=== PATIENT | male | born 1985 | race Two or more races ===

== ENCOUNTER 2017-10-29 12:43 | Day surgery (SDC) | payer OTHER ==
[2017-10-29 13:17] VITALS: BMI 45.3
[2017-10-29] MEDS ORDERED: LIDOCAINE HCL/PF 2% SDV 5ML VIAL ONE (15:17)
[2017-10-29] MEDS ORDERED: PROPOFOL 20 ML ONE ×2 (15:17)
[2017-10-29] MEDS ORDERED: SUCCINYLCHOLINE CHLORIDE 200 MG/10 ML VIAL ONE (15:17)
[2017-10-29] MEDS ORDERED: ROCURONIUM BROMIDE 50 MG/5 ML VIAL ONE (15:17)
[2017-10-29] MEDS ORDERED: fentaNYL CITRATE 250 MCG/5 ML VIAL ONE (15:17)
[2017-10-29] MEDS ORDERED: MIDAZOLAM HCL 2 MG/2 ML SINGLE DOSE VIAL ONE (15:18)
[2017-10-29] MEDS ORDERED: ceFAZolin SODIUM 1 GM VIAL IVPB ONE (15:50)
[2017-10-29] MEDS ORDERED: ceFAZolin SODIUM 1 GM VIAL ONE (15:50)
[2017-10-29] MEDS ORDERED: DEXAMETHASONE SOD PHOSPHATE 4 MG/1 ML VIAL ONE (15:50)
[2017-10-29] MEDS ORDERED: NEOSTIGMINE METHYLSULFATE 0.5 MG/ML - 10 ML MDV ONE (17:00)
[2017-10-29] MEDS ORDERED: BUPIVACAINE HCL/PF 0.5% (5MG/ML) 10 ML VIAL IJ ONE (17:06)
--- NOTE | 2017-10-29 17:27 | OP ---
Operative Note - Note: Operative Date: 10/29/17 Pre-Operative Diagnosis: Morbid obesity s/p lap band rule out obstruction/leak Operation: EGD/upper endoscopy Post-Operative Diagnosis: Other (No leak/obstruction) Surgeon: Ever Portillo Anesthesia: General Specimens Removed: None Estimated Blood Loss (mls): 0 Operative Report Dictated: Yes
[2017-10-29] MEDS ORDERED: ENOXAPARIN NA (PORCINE) 40 MG/0.4 ML DISP.SYRIN SQ ONE (17:28)
[2017-10-29] MEDS: HYDROmorphone HCL CARPU-JECT 1 MG/1 ML DISP.SYRIN IVPUSH PRN ×2 (17:33→17:40)
[2017-10-29] MEDS ORDERED: HYDROmorphone HCL CARPU-JECT 1 MG/1 ML DISP.SYRIN IVPB PRN (17:33)
[2017-10-29] MEDS ORDERED: ONDANSETRON 4 MG/2 ML VIAL IVPB PRN (17:34)
[2017-10-29] MEDS ORDERED: HYDROmorphone HCL CARPU-JECT 2 MG/1 ML DISP.SYRIN IVPB PRN (17:35)
[2017-10-29] MEDS ORDERED: ONDANSETRON 4 MG/2 ML VIAL IVPUSH PRN (17:38)
[2017-10-29] MEDS: ACETAMINOPHEN 1000 MG/100 ML VIAL (NON FORMULARY) IVPB PRN ×2 (17:45→23:55)
[2017-10-29] MEDS ORDERED: LACTATED RINGERS SOLUTION 1,000 ML IV SCH (17:45)
--- NOTE | 2017-10-29 17:48 | OP ---
Operative Note - Note: Operative Date: 10/29/17 Pre-Operative Diagnosis: Morbid Obesity. Sleep Apnea Operation: Laparoscopic Gastric Band. Diagnostic Laparoscopy Findings: 30 cc proximal gastric pouch created Very enlarged left lobe of liver Implants: gastric band plus sub-Q port Post-Operative Diagnosis: Other Surgeon: Joaquin Dasilva Maintenance Groundman: Ever Portillo Anesthesia: General Estimated Blood Loss (mls): 30 Operative Report Dictated: Yes
[2017-10-29 18:01] LABS: HEMATOCRIT 44.4 % (35.4-49); HEMOGLOBIN 14.1 GM/dL (11.7-16.9); MCH 25.8 pg (25.7-33.7); MCHC 31.8 g/dl (32.0-35.9); MEAN CELL VOLUME 81.2 fl (80-96); MEAN PLT VOLUME 8.6 fl (7.5-11.1); PLATELET COUNT 258 K/MM3 (134-434); RBC 5.47 M/mm3 (4.00-5.60); RDW 13.8 % (11.9-15.9); WHITE BLOOD COUNT 14.5 K/mm3 (4.0-10.0)
[2017-10-29] MEDS: SODIUM CHLORIDE 1,000 ML IV SCH ×2 (18:10→20:45)
[2017-10-29 18:29] LABS: ANION GAP 5 (8-16); BLOOD UREA NITROGEN 15 mg/dL (7-18); CALCIUM 8.6 mg/dL (8.5-10.1); CHLORIDE 105 mmol/L (98-107); CO2 29 mmol/L (21-32); CREATININE 1.3 mg/dL (0.7-1.3); GLUCOSE,RANDOM 139 mg/dL (74-106); POTASSIUM 4.3 mmol/L (3.5-5.1); SODIUM 139 mmol/L (136-145)
--- NOTE | 2017-10-29 19:52 | OP ---
DATE OF OPERATION: 10/29/2017 SURGEON: Jerry Portillo M.D. PREOPERATIVE DIAGNOSIS: Morbid obesity status post laparoscopic gastric band placement, rule out obstruction/leak. POSTOPERATIVE DIAGNOSIS: No leak/obstruction. SPECIMENS: None. ESTIMATED BLOOD LOSS: 0 mL. PROCEDURE: Upper endoscopy/EGD. REASON FOR THE PROCEDURE: This is a 32-year-old male who was undergoing a laparoscopic gastric band placement by Dr. Joaquin Dasilva. At the end of the case, after the band was placed, there was request for upper endoscopy to rule out leak or obstruction. DESCRIPTION OF PROCEDURE: The endoscope was placed into the patient's mouth. The entirety of the esophagus, GE junction, and stomach was inspected down to the level of the pylorus. No leak or obstruction was noted. The stomach was then decompressed, and the endoscope removed. The remainder of the procedure was continued. Please see Dr. Joaquin Dasilva's dictation for the rest of the gastric band procedure. JERRY PORTILLO M.D. [id number]
--- NOTE | 2017-10-29 20:04 | OP ---
DATE OF OPERATION: 10/29/2017 PREOPERATIVE DIAGNOSIS: 1. Morbid obesity. 2. Sleep apnea. POSTOPERATIVE DIAGNOSIS: 1. Morbid obesity. 2. Sleep apnea. 3. Hepatomegaly. PROCEDURE PERFORMED: 1. Gastric band for gastric restriction. 2. Diagnostic laparoscopy. OPERATING SURGEON: Joseluis Juarez M.D. CHILD & ADOLESCENT PSYCHIATRIST SURGEON: Ever Portillo M.D. ANESTHESIA: General. OPERATIVE PROCEDURE: The patient was brought into the operating room and was placed on the OR table in the supine position. All precautions were taken initially including padding for the back and the feet, and Venodyne boots were placed on both lower extremities. At that point, the abdomen was prepped and draped in the usual manner. A Veress needle was placed in the left upper quadrant, and a pneumoperitoneum was established. A number 12 bladeless trocar was placed in the left upper quadrant and through the trocar, laparoscopic camera was placed. Immediately upon placing the camera, the left lobe was noted to be extremely large, extending below the trocar. This affected the placement of the other trocars subsequently. A number 12 bladeless trocar was then placed below the left costal margin. Using that as a camera port, a number 15 and number 5 bladeless trocars were placed in the right upper quadrant. A Micheline liver retractor was then placed in the epigastrium to retract the left lobe of the liver. This Micheline needed to be removed multiple times, shifted from the right to the left side, in order to provide visualization of that particular portion of the stomach, because the liver was so enlarged. At this point, anesthesia placed the patient in 20-degree reverse Trendelenburg position. With the assistant professor of biology surgeon retracting the omentum inferiorly, the operating surgeon used electrocautery to score the peritoneum over the left esophagogastric junction. This continued superiorly into the left ashlyn as the diaphragm was noted. Again, the liver retractor had to be moved to better retract the lesser curvature or right side of the stomach. At this point, the caudate lobe of the liver was noted. An opening was made in the avascular plane, and then the right ashlyn of the diaphragm was noted. With the assistant professor of biology retracting the stomach toward the patient's left side, the operating surgeon scored the peritoneum anterior to the right ashlyn. A laparoscopic instrument was then used to make a blunt tunnel from the right to the left ashlyn until it was free in the left upper quadrant of the abdomen. The gastric band, which was an AP large band, was then prepped by the OR team and placed in the number 15 port site. The band tube was placed at the laparoscopic instrument, which was pulled and drawn to the patient's right side. The band tube was placed with the band buckle, which was tied or cinched down, and the band rotated to the patient's right side. Laparoscopic instrument easily fit between the band and the anterior stomach wall. At this point, the band tubing brought out number [address] Portillo scrubbed out of the surgery to perform an upper endoscopy. This is described in his detailed procedure note but essentially showed inside there was no sign of any injury to the stomach, and the stomach had no signs of any obstruction. At this point, the number 15 trocar site in right upper quadrant was extended laterally and dissection continued down to the right anterior rectus muscle fascia. 2-0 Prolene sutures were placed on all 4 sides, and the port was then attached to right anterior rectus muscle. 2-0 Prolene was used to close the port site internal hernia. All trocar sites then received 0.25% Marcaine. The number 15 trocar site was first closed with 3-0 Vicryl in the subcutaneous layer, and then all trocars were closed with 4-0 Biosyn in subcuticular fashion. Dressings were applied, patient awoken from anesthesia and transferred out of the operating room to recovery room in stable condition. Anesthesia in the case was general. Surgeon was Dr. Juarez. Hog Man Dr. Portillo. Expected blood loss of 30 mL. Patient transferred to recovery room in stable condition. JOSELUIS JUAREZ M.D. [id number]
[2017-10-29] MEDS: FAMOTIDINE 20 MG/50 ML IVPB 20 MG/50 ML MG IVPB SCH (21:50)
[2017-10-29] MEDS: ENOXAPARIN NA (PORCINE) 40 MG/0.4 ML DISP.SYRIN SQ SCH (21:51)
[2017-10-30] MEDS: SODIUM CHLORIDE 1,000 ML IV SCH ×2 (01:39→08:16)
[2017-10-30] MEDS ORDERED: PT OWN MED DRAWER 7, Y5N ONE ×2 (06:37→10:01)
[2017-10-30] MEDS ORDERED: IBUPROFEN 800 MG/8 ML IJ IVPB ONE (07:52)
--- NOTE | 2017-10-30 07:56 | PN ---
Progress Note (short form) - Note Progress Note: Anesthesia POD#1 S/P Laproscopic Gastric Band under GA VSS, still NPO,c/o abdominal craping pain for which Motrin is ordered. No N/V,no other injuries seen. A/P No complications to anesthesia seen. Michelle Marrero MD.
[2017-10-30] MEDS: FAMOTIDINE 20 MG/50 ML IVPB 20 MG/50 ML MG IVPB SCH (10:05)
[2017-10-30] MEDS: ENOXAPARIN NA (PORCINE) 40 MG/0.4 ML DISP.SYRIN SQ SCH (10:05)
[2017-10-30 11:07] VITALS: BP 141/83; PULSE 92; TEMP 98.1
--- NOTE | 2017-10-30 14:27 | PN ---
Progress Note (short form) - Note Progress Note: POD#1 Afebrile; VSS Pt doing well Tolerating PO clear liquids- 3 oz po TID Ambulating well Instructions given regarding shower, PO liquids, activity, F/U P- D/C patient home PO clear liquids- 3 oz po 4-5 times per day May shower beginning 11/01/17 F/U with call to office 11/02/17
== END 2017-10-30 12:15 | disposition home or self-care (01) ==
LOC: JASU-SURG 12:43 → J4S 20:55 → JASU-SURG 10-30 12:15
PROVIDERS: ATTEND Surgery
PROC: 0DV64CZ Restriction of Stomach with Extraluminal Device, Percutaneous Endoscopic Approach (ICD-10-PCS; principal; 2017-10-29 15:30)
PROC: 0DJ08ZZ Inspection of Upper Intestinal Tract, Via Natural or Artificial Opening Endoscopic (ICD-10-PCS; 2017-10-29 15:30)
DX: E66.01 Morbid (severe) obesity due to excess calories (principal); G47.30 Sleep apnea, unspecified; R16.0 Hepatomegaly, not elsewhere classified; Z68.42 Body mass index [BMI] 45.0-49.9, adult
CPT/HCPCS: 36415; 74241-TC-FY; 80048; 85027; 94760; J0131; J7030

== ENCOUNTER 2018-01-31 21:30 | Emergency (ER) | payer OTHER ==
--- NOTE | 2018-01-31 22:00 | PDOC ---
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 Eyes were immediately irrigated by technical staff assistant with copious amount of sterile NS. Patient denies eye pain, change in vision or other symptoms. Urine did not contact any other mucous membrane or other area of body. There was no contact with blood or serum. The patient has completed full course of Hepatitis B vaccine. No history of HIV. The patient whose urine splashed into employee's eyes denies history of hepatitis or HIV and consented to blood draw for lab determination of HepB/C and HIV status. No medications No known drug allergies s/p Lap band laparoscopic surgery 12/13 Past History - Past Medical History Allergies/Adverse Reactions: Allergies Allergy/AdvReac Type Severity Reaction Status Date / Time No Known Drug Allergies Allergy Verified 10/29/17 13:24 Home Medications: Ambulatory Orders Famotidine [Pepcid] 20 mg PO BID #60 tablet 10/29/17 Oxycodone HCl/Acetaminophen [Percocet 5-325 mg Tablet] 1 tab PO Q6H PRN #20 tablet MDD 4 10/29/17 Anemia: No Asthma: No Cancer: No Cardiac Disorders: No CVA: No COPD: No CHF: No Dementia: No Diabetes: No GI Disorders: No Disorders: No HTN: No Hypercholesterolemia: No Liver Disease: No Seizures: No Thyroid Disease: No - Surgical History Abdominal Surgery: No Appendectomy: No Cardiac Surgery: No Cholecystectomy: No Lung Surgery: No Neurologic Surgery: No Orthopedic Surgery: No - Suicide/Smoking/Psychosocial Hx Smoking History: Never smoked Hx Alcohol Use: Yes (occasional) Drug/Substance Use Hx: No Substance Use Type: Alcohol Hx Substance Use Treatment: No *Physical Exam - Physical Exam Comments: Physical Exam HEENT- Eyes: no conjunctival erythema/edema; pupils equal and reactive 3mm; no anterior chamber /scleral abnormalities Pharynx: moist mucous membranes, no edema/erythema/ masses Neck- supple, no masses or stridor Lungs-clear Cardiac- S1S2 normal, no xs,rubs,murmurs Abdomen-soft,non-tender, no masses or organomegaly Extremities- non-edematous, no tenderness or masses Neuro- Cranial nerve exam grossly intact, speech fluent, moving all 4 extremities equally Skin- no rashes/lesions/cyanosis Progress Note - Progress Note Progress Note: Since body fluid exposure was with urine ONLY and HIV viral content of urine is reportedly essentially zero, HIV post exposure prophylaxis is not recommended. Lab determination Hep B/HepC/ HIV drawn The patient will followup with Employee Health Service *DC/Admit/Observation/Transfer Diagnosis at time of Disposition: Occupational exposure in workplace - Discharge Dispostion Disposition: HOME Condition at time of disposition: Stable - Referrals Referrals: Mckay Mohr MD [Primary Care Provider] - - Patient Instructions Printed Discharge Instructions: How to Handle Body Fluid Exposure -- Healthcare Worker Additional Instructions: return to ER if you have pain/shortness of breath/nausea/fever followup with Employee Health office ; call tomorrow - Post Discharge Activity Forms/Work/School Notes: Back to Work
[2018-01-31 22:06] VITALS: BP 131/94; PULSE 90; TEMP 98.1; BMI 42.5
[2018-02-02 14:20] LABS: HBsAG SCREEN Negative (Negative)
== END 2018-01-31 23:04 | disposition home or self-care (01) ==
LOC: FER 21:30
DX: Z77.21 Contact with and (suspected) exposure to potentially hazardous body fluids (principal); X58.XXXA Exposure to other specified factors, initial encounter; Y93.89 Activity, other specified; Y92.239 Unspecified place in hospital as the place of occurrence of the external cause; Y99.0 Civilian activity done for income or pay
CPT/HCPCS: 36415; 87340; 87389; 99282-25

== ENCOUNTER 2018-03-23 14:55 | Emergency (ER) | payer OTHER ==
[2018-03-23 15:03] VITALS: BP 132/80; PULSE 78; TEMP 98.1; BMI 40.6
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
== END 2018-03-23 15:10 | disposition home or self-care (01) ==
LOC: FER 14:55
DX: S05.02XA Injury of conjunctiva and corneal abrasion without foreign body, left eye, initial encounter (principal); Y04.2XXA Assault by strike against or bumped into by another person, initial encounter; Y93.89 Activity, other specified; Y92.9 Unspecified place or not applicable
CPT/HCPCS: 99282-25

== ENCOUNTER 2019-02-18 12:03 | Day surgery (SDC) | payer OTHER ==
[2019-02-17 13:08] VITALS: BMI 41.3
[2019-02-18] MEDS ORDERED: ceFAZolin SODIUM 1 GM VIAL IVPB ONE (13:49)
--- NOTE | 2019-02-18 14:03 | HP ---
DATE OF ADMISSION: 02/18/2019 CHIEF COMPLAINT: 1. Epigastric abdominal pain. 2. Malfunctioning mechanical implantable device, secondary to gastric band. HISTORY OF PRESENT ILLNESS: This patient is a 33-year-old gentleman who had a Lap-Band placed a number of years ago who complains now of increasing symptoms related to the band. The symptoms include mostly epigastric pain and occasional GE reflux disease. The patient presents now for removal of gastric band. PAST MEDICAL HISTORY: Significant for sleep apnea. PAST SURGICAL HISTORY: Placement of a laparoscopic gastric band. MEDICATIONS: The patient takes no medications. ALLERGIES: Has no known allergies. REVIEW OF SYMPTOMS: Cardiovascular within normal limits. Respiratory within normal limits. GI within normal limits, except epigastric pain, occasional GE reflux disease. Neuromuscular within normal limits. PHYSICAL EXAMINATION: General: A 33-year-old gentleman, awake, alert, in no acute distress. HEENT: No masses palpated. Lungs: Good breath sounds bilaterally, clear A to P. Heart: Regular sinus rhythm. Abdomen: Well-healed trocar site. Soft, nontender on palpation. Extremities: No swelling or edema. IMPRESSION: Malfunctioning mechanical complication of implantable device, secondary to gastric band. PROCEDURE: Removal of gastric band plus subcutaneous port component. Susana [id number]
[2019-02-18] MEDS ORDERED: BUPIVACAINE HCL/PF (5 MG/ML) 30 ML VIAL IJ ONE (14:42)
[2019-02-18] MEDS ORDERED: oxyCODONE HCL 5 MG TABLET PO PRN (15:03)
[2019-02-18] MEDS ORDERED: ENOXAPARIN NA (PORCINE) 40 MG/0.4 ML DISP.SYRIN SQ ONE ×2 (15:03→18:00)
[2019-02-18] MEDS ORDERED: ONDANSETRON 4 MG TABLET PO PRN (15:04)
--- NOTE | 2019-02-18 15:10 | OP ---
Operative Note - Note: Operative Date: 02/18/19 Pre-Operative Diagnosis: Epigastric Pain. Mechanical complication of implantable device secondary to gastric band Operation: Removal of Gastric Band plus subcutaneous port component. Excision of fibrous capsule around stomach. Diagnostic Laparoscopy Findings: Fibrous capsule around band and around stomach excised carefully with scissors Post-Operative Diagnosis: Same as Pre-op (Fibrous capsule around stomach) Surgeon: Joaquin Dasilva Relocation Commissioner: Sarwat Acosta Anesthesia: General Specimens Removed: Gastric Band plus subcutaneous port component Estimated Blood Loss (mls): 30 Operative Report Dictated: Yes
[2019-02-18] MEDS ORDERED: SODIUM CHLORIDE 1,000 ML IV SCH (15:15)
--- NOTE | 2019-02-18 15:24 | SURG ---
Surgery Job Placement Officer Note Job Placement Officer: Sarwat Acosta PA-C Date of Service: 02/18/19 Diagnosis: Epigastric Pain. Mechanical complication of implantable device secondary to gastric band Procedure: Removal of Gastric Band plus subcutaneous port component. Excision of fibrous capsule around stomach. Diagnostic Laparoscopy I was present for the entirety of the operative procedure. For further detail, please refer to operative report. Visit type - Case Type Case Type: Scheduled - Emergency Emergency Visit: No - New patient This patient is new to me today: Yes Date on this admission: 02/18/19 - Critical Care Critical Care patient: No
[2019-02-18] MEDS ORDERED: ONDANSETRON 4 MG/2 ML VIAL ONE (15:50)
[2019-02-18] MEDS ORDERED: FAMOTIDINE 20 MG/50 ML IVPB 20 MG/50 ML MG IVPB ONE (15:50)
[2019-02-18] MEDS ORDERED: ONDANSETRON 4 MG/2 ML VIAL IVPUSH ONE (15:52)
[2019-02-18] MEDS ORDERED: ONDANSETRON 4 MG/2 ML VIAL IVPUSH PRN (15:57)
[2019-02-18] MEDS ORDERED: LACTATED RINGERS SOLUTION 1,000 ML IV SCH (16:00)
[2019-02-18] MEDS ORDERED: ACETAMINOPHEN 1000 MG/100 ML VIAL (NON FORMULARY) IVPB ONE ×2 (16:04)
[2019-02-18] MEDS ORDERED: FAMOTIDINE 20 MG PREMIXED IVPB IVPB ONE (16:05)
[2019-02-18 16:57] VITALS: TEMP 97.6
[2019-02-18 17:56] VITALS: BP 126/77; PULSE 78
[2019-02-18] MEDS ORDERED: FAMOTIDINE 20 MG/50 ML IVPB 20 MG/50 ML MG IVPB SCH (22:00)
--- NOTE | 2019-02-19 07:21 | OP ---
DATE OF OPERATION: 02/18/2019 PREOPERATIVE DIAGNOSES: 1. Epigastric abdominal pain. 2. Mechanical complication of implantable device secondary to gastric band. POSTOPERATIVE DIAGNOSES: 1. Epigastric abdominal pain. 2. Mechanical complication of implantable device secondary to gastric band. 3. Fibrous capsule around the stomach. PROCEDURE PERFORMED: 1. Removal of gastric band plus subcutaneous port component. 2. Excision of fibrous capsule around the stomach. 3. Diagnostic laparoscopy. OPERATING SURGEON: Joaquin Dasilva MD NEW PATIENT ESCORT: ORQUIDEA Pina ANESTHESIA: General. OPERATIVE PROCEDURE: The patient was brought into the operating room, placed on the OR table in the supine position. All precautions were taken initially including padding for the back and the feet and Venodyne boots were placed on both lower extremities. At that point the abdomen was prepped and draped in the usual manner. A Veress needle was placed in the left upper quadrant and a pneumoperitoneum was established. A No. 5 bladeless trocar was placed in the left upper quadrant. Through that trocar a laparoscopic camera was placed. The liver was noted to be enlarged and there were adhesions between the medial surface of the left lobe of the liver and the omentum. A No. 5 bladeless trocar was then placed below the left costal margin. The laparoscopic camera was placed there. Under direct vision No. 5 and No. 12 bladeless trocars were placed in the right upper quadrant. At this point a Micheline liver retractor was placed in the epigastrium to retract the left lobe of the liver. The patient was then placed in a 20-degree reverse Trendelenburg position by Anesthesia. At this point the operating surgeon retracted the band tubing toward the patient's right side and the group fitness assistant department head surgeon retracted the stomach inferiorly on the greater curve. Electrocautery was then used to dissect the fibrous capsule off the band and this was done along the greater curvature until the entire band and the greater curvature were now completely exposed. At this juncture the group fitness assistant department head surgeon grabbed the tubing of the band and pulled it to the patient's left side and the operating surgeon retracted the stomach inferiorly on the lesser curve. Electrocautery was then used to dissect the scar tissue and the fibrous capsule off the band until the entire band was free of scar tissue anteriorly. The band was then opened and the band tubing was cut at the takeoff to the subcutaneous port and the band then removed from around the stomach and sent off the field as specimen to Pathology. Attention was now directed to fibrous capsule around the stomach. As the group fitness assistant department head and the operating surgeon held the fibrous capsule on the inferior portion upwards on either side the operating surgeon took a scissor and gently dissected the fibrous capsule off the anterior stomach wall. This continued from an inferior to superior direction until the final fibrous capsule was split just at the scar tissue of the liver and the fibrous capsule was peeled back and the anterior surface of the stomach was now free of all fibrous capsule. At this juncture under direct vision all trocars were removed and pneumoperitoneum was released. The No. 12 trocar site was now extended laterally and dissected with electrocautery down to the subcutaneous port. The fibrous capsule was dissected off the port and the port and remaining tubing were removed and sent off the field as specimen to Pathology with the rest of the band. At this point all trocar sites received 0.25% Marcaine. The No. 12 trocar site was first closed with 3-0 Vicryl on the subcutaneous tissue and then all trocar sites were closed with 4-0 Biosyn in subcuticular fashion. Dressings were applied. Patient awoke from anesthesia and transferred out of the operating room to the recovery room in stable condition. EXPECTED BLOOD LOSS: 30 mL. Susana [id number]
== END 2019-02-18 18:50 | disposition home or self-care (01) ==
LOC: JASU-SURG 12:03
PROVIDERS: ATTEND Surgery
PROC: 0DP64YZ Removal of Other Device from Stomach, Percutaneous Endoscopic Approach (ICD-10-PCS; principal; 2019-02-18 13:00)
DX: T85.898A Other specified complication of other internal prosthetic devices, implants and grafts, initial encounter (principal); R10.9 Unspecified abdominal pain; R10.13 Epigastric pain
CPT/HCPCS: 94760; J0131

== ENCOUNTER 2019-06-06 11:02 | Inpatient (IN) | payer OTHER ==
[2019-05-30 11:21] VITALS: BMI 44.3
[2019-06-06] MEDS ORDERED: BUPIVACAINE HCL/PF 2.5 MG/ML - 30 ML VIAL IJ ONE (11:37)
[2019-06-06] MEDS ORDERED: BUPIVACAINE HCL/PF 0.25% (2.5MG/ML) 10 ML VIAL IJ ONE (13:50)
[2019-06-06] MEDS ORDERED: ONDANSETRON 4 MG/2 ML VIAL IVPUSH PRN ×2 (14:11→14:39)
[2019-06-06] MEDS ORDERED: SODIUM CHLORIDE 1,000 ML IV SCH (14:15)
--- NOTE | 2019-06-06 14:20 | OP ---
Operative Note - Note: Operative Date: 06/06/18 Pre-Operative Diagnosis: Morbid Obesity Operation: Laparoscopic Vertical SLeeve Gastrectomy. Laparoscopic Lysis of Adhesions. Diagnostic Laparoscopy Findings: Greater curve sleeve gastrectomy performed with #[address] Large amount of adhesions lysed between stomach and omentum from previous gastric surgery Post-Operative Diagnosis: Same as Pre-op (Abdominal adhesions) Surgeon: Joaquin Dasilva Supervisor Sulfuric Acid Plant: Ever Portillo Anesthesia: General Specimens Removed: Greater curve of stomach Estimated Blood Loss (mls): 50 Operative Report Dictated: Yes
[2019-06-06] MEDS ORDERED: METOCLOPRAMIDE HCL INJECTION 10 MG/2 ML VIAL ONE (14:38)
[2019-06-06] MEDS ORDERED: FAMOTIDINE 20 MG/50 ML IVPB 20 MG/50 ML MG IVPB ONE (14:38)
[2019-06-06] MEDS ORDERED: FAMOTIDINE 20 MG PREMIXED IVPB IVPB ONE (14:42)
[2019-06-06 16:17] LABS: ALBUMIN 4.3 g/dl (3.4-5.0); BILIRUBIN,TOTAL 0.3 mg/dl (0.2-1); CREATININE 1.2 mg/dl (0.55-1.3); POTASSIUM 4.7 mmol/L (3.5-5.1); TOT PROT 7.8 g/dl (6.4-8.2)
[2019-06-06 16:18] LABS: HEMATOCRIT 44.5 % (35.4-49); HEMOGLOBIN 14.4 GM/dl (11.7-16.9); MCH 26.2 pg (25.7-33.7); MCHC 32.4 g/dl (32.0-35.9); MEAN CELL VOLUME 80.7 fl (80-96); MEAN PLT VOLUME 9.4 fl (7.5-11.1); PLATELET COUNT 268 K/MM3 (134-434); RBC 5.51 M/mm3 (4.00-5.60); RDW 13.9 % (11.9-15.9); WHITE BLOOD COUNT 12.6 K/mm3 (4.0-10.8)
--- NOTE | 2019-06-06 17:11 | HP ---
Admitting History and Physical - Primary Care Physician PCP: Angelo Horner - Admission Chief Complaint: s/p gastric sleeve History of Present Illness: 33 yr old morbid obese male came in for gastric sleeve surgery, he says he has been planning this surgery for months History Source: Patient - Past Surgical History Additional Past Surgical History: lap band done in 2018 which was removed - Smoking History Smoking history: Never smoked Have you smoked in the past 12 months: No - Alcohol/Substance Use Hx Alcohol Use: Yes (socially) Home Medications - Allergies Allergies/Adverse Reactions: Allergies Allergy/AdvReac Type Severity Reaction Status Date / Time No Known Drug Allergies Allergy Verified 05/30/19 11:16 - Home Medications Home Medications: Ambulatory Orders Famotidine [Pepcid] 20 mg PO BID #60 tablet 06/06/19 Oxycodone HCl/Acetaminophen [Percocet 5-325 mg Tablet] 1 tab PO Q6H PRN #20 tablet MDD 4 06/06/19 Review of Systems - Review of Systems Gastrointestinal: reports: Abdominal Pain Physical Examination Vital Signs: Vital Signs Temperature 97.9 F 06/06/19 16:39 Pulse Rate 96 H 06/06/19 16:39 Respiratory Rate 06/06/19 16:39 Blood Pressure 137/88 06/06/19 16:39 O2 Sat by Pulse Oximetry (%) 95 06/06/19 16:39 Constitutional: Yes: Calm Cardiovascular: Yes: Regular Rate and Rhythm, S1, S2 Respiratory: Yes: CTA Bilaterally Gastrointestinal: Yes: Soft, Tenderness (at incision sites 5 incision sites) Labs: CBC, BMP 06/06/19 15:00 06/06/19 15:20 Problem List - Problems (1) Surgery, elective Assessment/Plan: Operative Date: 06/06/18 Pre-Operative Diagnosis: Morbid Obesity Operation: Laparoscopic Vertical SLeeve Gastrectomy. Laparoscopic Lysis of Adhesions. Diagnostic Laparoscopy iv pain meds zofran prn npo ivf dvtppx monitor lytes Code(s): Z41.9 - ENCNTR FOR PROC FOR PURPOSE OTH THAN [facility], [facility]
[2019-06-06] MEDS: HYDROmorphone HCL CARPU-JECT 1 MG/1 ML DISP.SYRIN IM PRN ×2 (18:34→22:26)
--- NOTE | 2019-06-06 20:20 | OP ---
DATE OF OPERATION: 06/06/2019 PREOPERATIVE DIAGNOSIS: Morbid obesity. POSTOPERATIVE DIAGNOSES: 1. Morbid obesity. 2. Abdominal adhesions. PROCEDURE PERFORMED: 1. Laparoscopic vertical sleeve gastrectomy. 2. Laparoscopic lysis of adhesions. 3. Diagnostic laparoscopy. OPERATING SURGEON: Joseluis Dasilva MD MUSIC TYPOGRAPHER: Ever Portillo MD ANESTHESIA: General. OPERATIVE PROCEDURE: The patient was brought in to the operating room, placed on the OR table in supine position. All precautions were taken initially including padding for the back and the feet and Venodyne boots were placed on both lower extremities. At that point the abdomen was prepped and draped in the usual manner. A Veress needle was placed in the left upper quadrant and a pneumoperitoneum was established. Under direct vision, a number 5 bladeless trocar was placed in the left upper quadrant, and once directed into the abdominal cavity, the laparoscopic camera was placed. Under direct vision, a number 15 bladeless trocar was placed in the midline in a supraumbilical position, and a number 5 bladeless trocar below the right costal margin. A number 5 bladeless trocar was then placed in the left upper quadrant below the left costal margin. Immediately upon placing the camera, there was noted to be a large amount of adhesions from patient's previous surgery. Right in from the midline, right by the liver, a large amount of omentum was adhered to the falciform ligament. This was lysed with the LigaSure device. Once this was lysed safely and cleanly, the omentum was now returned to its original place in the abdominal cavity. At this point, a Micheline liver retractor was placed in the epigastrium to retract the left lobe of the liver. The patient was then placed in a 20-degree reverse Trendelenburg position by Anesthesia. There were adhesions between the mesocolon, the omentum, and the edge of the left lobe of the liver inferiorly, and this was lysed partially with the LigaSure in order to get enough clearing in order to proceed with a sleeve gastrectomy. At this point, the pylorus was noted in the distal stomach and 6 cm was measured proximally. Here, the operating surgeon lifted the stomach toward the anterior abdominal wall as the night assistant surgeon retracted the gastrocolic ligament inferiorly. The LigaSure device was used to dissect the gastrocolic ligament off the greater curve of the stomach. This continued in a superior vertical direction, dissecting the short gastric vessels off the greater curve until the final short gastric vessel between the superior pole of the spleen and the proximal fundus was divided. There were also adhesions between the omentum and the anterior surface of the stomach, and these also were lysed with the LigaSure in order to get full exposure of the stomach wall. At this juncture, Anesthesia advanced a number 36 bougie along the lesser curve. With the bougie held along the lesser curvature, a series of kerline was performed, the first two being black load kerline, 6 cm in length, along the bougie. This was followed by a series of purple load kerline, also 6 cm in length, along the bougie, and continued until the final staple was fired in the left upper quadrant. The greater curve was now completely detached from the lesser curve. It should be noted that prior to firing each stapler, both the anterior and posterior tidwell were checked that they were intact, and in the area of the esophagogastric junction, approximately 1 to 1.5 cm of serosa remained on the anterior and posterior surfaces. At this juncture, there was some minor bleeding noted at the staple line proximally by the fundus of the stomach and also more distally down by the antrum. In both cases, the Endo Stitch was used to oversew the staple line in those areas and this was done until no further bleeding was noted. At this juncture, saline was placed around the staple line, and Anesthesia inflated the bougie, which showed the entire stomach distended. No obstruction and no leaks were noted. At this juncture, the specimen was removed through the number 15 trocar site, sent off the field as specimen to Pathology. Surgicel was placed in the abdominal cavity along the staple line and also along the resected short gastric vessels. Under direct vision, all trocars were removed and pneumoperitoneum was released. All trocar sites received 0.25% Marcaine, were closed with 4-0 Biosyn in subcuticular fashion. The number 15 trocar site was first closed with 3-0 Vicryl on the subcutaneous tissue, then followed by 4-0 Biosyn in a subcuticular fashion. Dressings were applied. Patient awoke from anesthesia and transferred out of the operating room to the recovery room in stable condition. Anesthesia in the case was general. Surgeon: Dr. Dasilva. Birdcage Assembler: Dr. Portillo. Expected blood loss: 50 mL. Patient transferred to recovery room in stable condition. JOSELUIS DASILVA M.D. CORAL/[id number]
[2019-06-06] MEDS: METOCLOPRAMIDE HCL INJECTION 10 MG/2 ML VIAL IVPUSH SCH (21:02)
[2019-06-06] MEDS: FAMOTIDINE 20 MG/50 ML IVPB 20 MG/50 ML MG IVPB SCH (21:29)
[2019-06-06] MEDS ORDERED: ENOXAPARIN NA (PORCINE) 40 MG/0.4 ML DISP.SYRIN SQ SCH (22:00)
[2019-06-07] MEDS ORDERED: ENOXAPARIN NA (PORCINE) 40 MG/0.4 ML DISP.SYRIN SQ SCH (00:05)
[2019-06-07] MEDS: ENOXAPARIN NA (PORCINE) 40 MG/0.4 ML DISP.SYRIN SQ SCH ×2 (00:36→12:47)
[2019-06-07] MEDS: METOCLOPRAMIDE HCL INJECTION 10 MG/2 ML VIAL IVPUSH SCH ×3 (03:48→14:14)
[2019-06-07] MEDS: HYDROmorphone HCL CARPU-JECT 1 MG/1 ML DISP.SYRIN IM PRN ×2 (06:09→15:59)
[2019-06-07 07:54] LABS: BASO % 0.2 % (0-2.0); HEMOGLOBIN 13.1 GM/dl (11.7-16.9); LYMPH % 13.4 % (8-40); MCH 26.2 pg (25.7-33.7); MCHC 32.7 g/dl (32.0-35.9); MEAN CELL VOLUME 80.1 fl (80-96); MEAN PLT VOLUME 9.6 fl (7.5-11.1); NEUT % 75.4 % (42.8-82.8); PLATELET COUNT 229 K/MM3 (134-434); RBC 4.99 M/mm3 (4.00-5.60); RDW 13.6 % (11.9-15.9); WHITE BLOOD COUNT 10.9 K/mm3 (4.0-10.8)
[2019-06-07 08:00] LABS: ALBUMIN 3.8 g/dl (3.4-5.0); BILIRUBIN,TOTAL 0.3 mg/dl (0.2-1); CALCIUM 8.6 mg/dl (8.5-10); POTASSIUM 4.6 mmol/L (3.5-5.1); TOT PROT 6.9 g/dl (6.4-8.2)
--- NOTE | 2019-06-07 08:21 | PN ---
Progress Note, Physician - Current Medication List Current Medications: Active Medications Enoxaparin Sodium (Lovenox -) 40 mg SQ Q12H [facility] Last Admin: 06/07/19 00:36 Dose: 40 mg Hydromorphone HCl (Dilaudid Injection -) 1 mg IM Q4H PRN PRN Reason: PAIN LEVEL 1-5 Last Admin: 06/07/19 06:09 Dose: 1 mg Famotidine/Sodium Chloride (Pepcid 20 Mg Premixed Ivpb -) 20 mg in 50 mls @ 100 mls/hr IVPB BID JARRELL Last Admin: 06/06/19 21:29 Dose: 100 mls/hr Sodium Chloride (Normal Saline -) 1,000 mls @ 150 mls/hr IV ASDIR JARRELL Metoclopramide HCl (Reglan Injection -) 10 mg IVPUSH Q6H [facility] Last Admin: 06/07/19 03:48 Dose: 10 mg Ondansetron HCl (Zofran Injection) 4 mg IVPUSH Q4H PRN PRN Reason: NAUSEA AND/OR VOMITING Last Admin: 06/06/19 14:35 Dose: 4 mg - Objective Vital Signs: Vital Signs Temperature 98.3 F 06/07/19 04:00 Pulse Rate 91 H 06/07/19 04:00 Respiratory Rate 18 06/07/19 04:00 Blood Pressure 158/91 06/07/19 04:00 O2 Sat by Pulse Oximetry (%) 95 06/07/19 04:00 Cardiovascular: Yes: Regular Rate and Rhythm Respiratory: Yes: Regular, CTA Bilaterally Gastrointestinal: Yes: Soft, Tenderness Labs: CBC, BMP 06/07/19 07:10 06/07/19 07:10 Problem List - Problems (1) Surgery, elective Assessment/Plan: Operative Date: 06/06/18 Pre-Operative Diagnosis: Morbid Obesity Operation: Laparoscopic Vertical SLeeve Gastrectomy. Laparoscopic Lysis of Adhesions. Diagnostic Laparoscopy iv pain meds zofran prn diet per surgery ivf dvtppx monitor lytes Code(s): Z41.9 - ENCNTR FOR PROC FOR PURPOSE OTH THAN [place] STATE, UNSP (2) Chronic GERD Assessment/Plan: on h2 Code(s): K21.9 - GASTRO-ESOPHAGEAL REFLUX DISEASE WITHOUT ESOPHAGITIS (3) Sleep apnea Code(s): G47.30 - SLEEP APNEA, UNSPECIFIED (4) HTN (hypertension) Assessment/Plan: -MOnitor Vital Signs Period Temp Pulse Resp BP Sys/Arellano Pulse Ox Last 24 Hr 97.9 F-98.9 F 91-101 15-22 117-160/62-95 94-97 Code(s): I10 - ESSENTIAL (PRIMARY) HYPERTENSION
[2019-06-07] MEDS: FAMOTIDINE 20 MG/50 ML IVPB 20 MG/50 ML MG IVPB SCH (09:51)
[2019-06-07] MEDS ORDERED: ACETAMINOPHEN 325 MG TABLET (FP) PO PRN (13:13)
[2019-06-07] MEDS ORDERED: oxyCODONE HCL 5 MG TABLET PO PRN (13:13)
[2019-06-07] MEDS ORDERED: SODIUM CHLORIDE 1,000 ML IV SCH (13:15)
--- NOTE | 2019-06-07 13:20 | PN ---
Progress Note (short form) - Note Progress Note: POD#1 Afebrile; VSS Pt doing well No N/V P/E- Abd- all trocar sites, clean, dry Ext- Teds in place, no swelling H/H-13.1/40.0 UGI- no leak, no obstruction P- D/C pt home PO clear liquids- 2 oz po 4-5 times per day F/U in 9 days
[2019-06-07 14:00] VITALS: BP 137/89; PULSE 83; TEMP 99.5
--- NOTE | 2019-06-08 16:34 | PATH ---
Surgical Pathology Report Patient Name: BARBARA AHMADI Med. Rec. #: [id number] /Age/Gender: 1985 (Age: 33) / M Account: [id number] Location: [facility] Taken: 06/06/2019 Received: 06/06/2019 Reported: 06/08/2019 Physicians: Joaquin Dasilva M.D. Specimen(s) Received GREATER CURVATURE STOMACH Clinical History Morbid obesity Final Diagnosis GREATER CURVATURE STOMACH, LAPAROSCOPIC VERTICAL SLEEVE GASTRECTOMY: SEGMENT OF STOMACH SHOWING MODERATELY ACTIVE CHRONIC GASTRITIS. IMMUNOSTAINING IS POSITIVE FOR H. PYLORI ORGANISMS. NEGATIVE FOR INTESTINAL METAPLASIA. Electronically Signed Myles Acosta M.D. Gross Description Received in formalin, labeled "greater curvature of stomach," is a 123 gram, 25.0 x 3.5 x 3.2 cm. portion of stomach with a stapled margin of resection. The serosa is armas-henson with minimal attached fat. The mucosa is armas-pink with normal folds. No mucosal masses are identified. Nail Mill Worker sections are submitted in one cassette. /06/07/2019 [facility]06/07/2019
== END 2019-06-07 16:10 | disposition home or self-care (01) | DRG 621 ==
LOC: FM/S 11:02
PROVIDERS: ADMIT Surgery; ATTEND Surgery
PROC: 0DNW4ZZ Release Peritoneum, Percutaneous Endoscopic Approach (ICD-10-PCS; 2019-06-06)
PROC: 0DJ04ZZ Inspection of Upper Intestinal Tract, Percutaneous Endoscopic Approach (ICD-10-PCS; 2019-06-06)
PROC: 0DB64Z3 Excision of Stomach, Percutaneous Endoscopic Approach, Vertical (ICD-10-PCS; principal; 2019-06-06 12:34)
DX: E66.01 Morbid (severe) obesity due to excess calories (principal); Z68.42 Body mass index [BMI] 45.0-49.9, adult; K21.9 Gastro-esophageal reflux disease without esophagitis; G47.30 Sleep apnea, unspecified; I10 Essential (primary) hypertension; K66.0 Peritoneal adhesions (postprocedural) (postinfection)
CPT/HCPCS: 36415; 74241-TC-FY; 80053; 85025; 85027; 88305-TC; 94760

== ENCOUNTER 2019-11-21 12:13 | Emergency (ER) | payer OTHER ==
--- NOTE | 2019-11-21 12:48 | PDOC ---
History of Present Illness - General Chief Complaint: Diarrhea Stated Complaint: DIARRHEA Time Seen by Provider: 11/21/19 12:22 History Source: Patient Exam Limitations: No Limitations - History of Present Illness Travel History: No Initial Comments: 11/21/19 12:30 34y M hx of gastric sleve presents with complaint of diarrhea. Diarrhea is watery in nature, ~10 episodes - without associated fever/chlls,n/v, melena/ bpr. No recent travelor sick contacts. Denies any regular GI sx after sleeve no assoc cp, sob, cough, dizziness. tolerating oral intake. ROS Constitutional - no reported Fever, Chills, HEENT: no reported vision changes, sore throat Respiratory: no reported cough, Cardiac: no reported chest pain, palpitations, light headedness, Abd/GI: +diarrhea no reported abd pain, nausea, vomiting, blood per rectum, melena, : no reported dysuria, exam: GENERAL: The patient is awake, alert, and fully oriented, Nontoxic - in no acute distress. ABDOMEN: Soft, nontender, No guarding, no rebound. No CVA tenderness likely viral diarrhea no abd tenderness, f/c will dc with supportive care pmd fu Past History - Past Medical History Allergies/Adverse Reactions: Allergies Allergy/AdvReac Type Severity Reaction Status Date / Time No Known Drug Allergies Allergy Verified 05/30/19 11:16 Home Medications: Ambulatory Orders NK [No Known Home Medication] 11/21/19 Anemia: No Asthma: No Cancer: No Cardiac Disorders: No CVA: No COPD: No CHF: No DVT: No Dementia: No Diabetes: No GI Disorders: No Disorders: No HTN: No Hypercholesterolemia: No Liver Disease: No Seizures: No Thyroid Disease: No - Surgical History Abdominal Surgery: No Appendectomy: No Cardiac Surgery: No Cholecystectomy: No Lung Surgery: No Neurologic Surgery: No Orthopedic Surgery: No - Psycho Social/Smoking Cessation Hx Smoking History: Never smoked Have you smoked in the past 12 months: No Hx Alcohol Use: Yes (socially) Drug/Substance Use Hx: No Substance Use Type: Alcohol Hx Substance Use Treatment: No Discharge - Discharge Information Problems reviewed: Yes Clinical Impression/Diagnosis: Diarrhea Qualifiers: Diarrhea type: unspecified type Qualified Code(s): R19.7 - Diarrhea, unspecified Condition: Good Disposition: HOME - Admission No - Follow up/Referral Referrals: Junior Cook MD [Primary Care Provider] - - Patient Discharge Instructions Patient Printed Discharge Instructions: DI for Diarrhea and Traveler's Diarrhea -- Adult Additional Instructions: Return to the emergency department immediately with ANY new, persistent or worsening symptoms including worsening abdominal pain, fevers, inability to tolerate oral intake, chest pain, shortness of breath or any other concerns. Stay well hydrated. You MUST call and follow up with your doctor tomorrow. Your emergency department visit is not complete without a followup with your doctor for reevaluation. Please make sure your doctor reviews the results of your emergency evaluation. Print Language: PASHTO - Post Discharge Activity Work/Back to School Note: Back to Work
[2019-11-21 12:49] VITALS: BP 135/87; PULSE 73; TEMP 98.3; BMI 39.9
== END 2019-11-21 13:00 | disposition home or self-care (01) ==
LOC: FER 12:13
DX: R19.7 Diarrhea, unspecified (principal)
CPT/HCPCS: 99281-25

== ENCOUNTER 2019-12-18 16:35 | Emergency (ER) | payer OTHER ==
[2019-12-18 16:40] VITALS: BP 130/82; PULSE 94; TEMP 99.2; BMI 39.9
--- NOTE | 2019-12-18 16:55 | PDOC ---
History of Present Illness - General Chief Complaint: Cold Symptoms Stated Complaint: FLU? Time Seen by Provider: 12/18/19 16:55 - History of Present Illness Initial Comments: 34 12/18/19 16:55 Past History - Past Medical History Allergies/Adverse Reactions: Allergies Allergy/AdvReac Type Severity Reaction Status Date / Time No Known Drug Allergies Allergy Verified 12/18/19 16:36 Home Medications: Ambulatory Orders NK [No Known Home Medication] 11/21/19 Anemia: No Asthma: No Cancer: No Cardiac Disorders: No CVA: No COPD: No CHF: No DVT: No Dementia: No Diabetes: No GI Disorders: No Disorders: No HTN: No Hypercholesterolemia: No Liver Disease: No Seizures: No Thyroid Disease: No - Surgical History Abdominal Surgery: No Appendectomy: No Cardiac Surgery: No Cholecystectomy: No Gastric Stapling: Yes Lung Surgery: No Neurologic Surgery: No Orthopedic Surgery: No - Psycho Social/Smoking Cessation Hx Smoking History: Never smoked Have you smoked in the past 12 months: No Information on smoking cessation initiated: No Hx Alcohol Use: No Drug/Substance Use Hx: No Substance Use Type: Alcohol Hx Substance Use Treatment: No *Physical Exam - Vital Signs Last Vital Signs Temp Pulse Resp BP Pulse Ox 99.2 F 94 H 20 130/82 98 12/18/19 16:36 12/18/19 16:36 12/18/19 16:36 12/18/19 16:36 12/18/19 16:36
[2019-12-18] MEDS ORDERED: IBUPROFEN 600 MG TABLET (FP) PO ONE ×2 (16:59→17:00)
[2019-12-18] MEDS ORDERED: FAMOTIDINE 20 MG/50 ML IVPB 0 MG/0 ML MG IVPB ONE (17:05)
[2019-12-18] MEDS ORDERED: methylPREDNISolone NA SUCC 125 MG/2 ML VIAL ONE (17:05)
--- NOTE | 2019-12-18 17:09 | PDOC ---
History of Present Illness - General Chief Complaint: Cold Symptoms Stated Complaint: FLU? 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 Patient is at work and said since last night he has had low-grade fever chills and upper respiratory tract type symptoms. Allergies: as per nursing notes Past Medical History: none Social history: Lives with family. No smoking. No alcohol. No illicit drugs. Surgical history: None General: No fevers or chills, no weakness, no weight loss HEENT: No change in vision. No sore throat,. No ear pain CardioVascular: no chest discomfort. No shortness of breath Respiratory:No cough, or wheezing. Gastrointestinal: no nausea, vomiting, diarrhea or constipation, No rectal bleeding Genitourinary: No dysuria, hematuria, or frequency Musculoskeletal: No joint or muscle pain or swelling Neurologic: No headache, vertigo, dizziness or loss of consciousness Psychiatric: nor depression Skin: No rashes or easy bruising Endocrine: no increased thirst or abnormal weight change Allergic: no skin or latex allergy All other systems reviewed and normal GENERAL: The patient is awake, alert, and fully oriented, in no acute distress. HEAD: Normal with no signs of trauma. EYES: Pupils equal, round and reactive to light, extraocular movements intact, sclera anicteric, conjunctiva clear. EXTREMITIES:atraumatic, Normal range of motion, no edema. NEUROLOGICAL: Normal speech, normal gait. PSYCH: Normal mood, normal affect. SKIN: Warm, Dry, normal turgor, no rashes or lesions noted. 12/18/19 18:04 Patient tested positive for influenza type A. As patient is an employee here in the ED patient sent home he will be contagious for 5 to 7 days and was instructed to not return to work until the which is day 7 Past History - Past Medical History Allergies/Adverse Reactions: Allergies Allergy/AdvReac Type Severity Reaction Status Date / Time No Known Drug Allergies Allergy Verified 12/18/19 16:36 Home Medications: Ambulatory Orders NK [No Known Home Medication] 11/21/19 Anemia: No Asthma: No Cancer: No Cardiac Disorders: No CVA: No COPD: No CHF: No DVT: No Dementia: No Diabetes: No GI Disorders: No Disorders: No HTN: No Hypercholesterolemia: No Liver Disease: No Seizures: No Thyroid Disease: No - Surgical History Abdominal Surgery: No Appendectomy: No Cardiac Surgery: No Cholecystectomy: No Gastric Stapling: Yes Lung Surgery: No Neurologic Surgery: No Orthopedic Surgery: No - Psycho Social/Smoking Cessation Hx Smoking History: Never smoked Have you smoked in the past 12 months: No Information on smoking cessation initiated: No Hx Alcohol Use: No Drug/Substance Use Hx: No Substance Use Type: Alcohol Hx Substance Use Treatment: No *Physical Exam - Vital Signs Last Vital Signs Temp Pulse Resp BP Pulse Ox 99.2 F 94 H 20 130/82 98 12/18/19 16:36 12/18/19 16:36 12/18/19 16:36 12/18/19 16:36 12/18/19 16:36 Discharge - Discharge Information Problems reviewed: Yes Clinical Impression/Diagnosis: Influenza A Disposition: HOME - Admission No - Follow up/Referral - Patient Discharge Instructions Additional Instructions: Tylenol or Motrin as needed for fevers, body aches, chills. Stay well-hydrated. No work until the which is day 7 of your flu/ Return to the emergency department immediately with ANY new, persistent or worsening symptoms. Continue any medications as previously prescribed by your physician. You should follow up with your primary doctor as soon as possible regarding today's emergency department visit. . Please make sure your doctor reviews the results of your emergency evaluation. Thank you for coming to the Emergency Department today for your care. It was a pleasure to see you today. Please note that your evaluation is INCOMPLETE until you follow-up with your doctor. - Post Discharge Activity Work/Back to School Note: Back to Work
[2019-12-18] MEDS ORDERED: OSELTAMIVIR PHOSPHATE 75 MG CAPSULE PO ONE (18:00)
== END 2019-12-18 18:09 | disposition home or self-care (01) ==
LOC: FER 16:35
DX: J09.X2 Influenza due to identified novel influenza A virus with other respiratory manifestations (principal)
CPT/HCPCS: 87804; 99283-25

== ENCOUNTER 2020-05-19 12:35 | Emergency (ER) | payer OTHER ==
--- NOTE | 2020-05-19 15:41 | PDOC ---
History of Present Illness - General Chief Complaint: Cold Symptoms History Source: Patient Exam Limitations: No Limitations - History of Present Illness Initial Comments: 05/19/20 15:38 34-year-old male denies past medical history being evaluated via telemedicine. Patient requesting COVID testing given he found out today father is COVID positive. Patient reports nasal congestion for 2 days otherwise denies cough, fever, shortness of breath, chest pain, chills, abdominal pain, recent travel. ROS: As above PE: Speaking full sentences Unable to exam patient over the telephone Is this a multiple visit Asthma Patient?: No Past History - Medical History Allergies/Adverse Reactions: Allergies Allergy/AdvReac Type Severity Reaction Status Date / Time No Known Drug Allergies Allergy Verified 12/18/19 16:36 Home Medications: Ambulatory Orders NK [No Known Home Medication] 11/21/19 Anemia: No Asthma: No Cancer: No Cardiac Disorders: No CVA: No COPD: No CHF: No DVT: No Dementia: No Diabetes: No GI Disorders: No Disorders: No HTN: No Hypercholesterolemia: No Liver Disease: No Seizures: No Thyroid Disease: No - Surgical History Abdominal Surgery: No Appendectomy: No Cardiac Surgery: No Cholecystectomy: No Gastric Stapling: Yes Lung Surgery: No Neurologic Surgery: No Orthopedic Surgery: No - Psycho-Social/Smoking History Smoking History: Never smoked Have you smoked in the past 12 months: No Medical Decision Making - Medical Decision Making 05/19/20 15:40 34-year-old male denies past medical history being evaluated via telemedicine. Patient requesting COVID testing given he found out today father is COVID positive. Patient reports nasal congestion for 2 days otherwise denies cough, fever, shortness of breath, chest pain, chills, abdominal pain, recent travel. Ordered COVID test Patient understands he will be contacted with results within a few days Discharge - Discharge Information Problems reviewed: Yes Clinical Impression/Diagnosis: Suspected COVID-19 virus infection, Counseled about COVID-19 virus infection Condition: Stable Disposition: HOME - Admission No - Follow up/Referral - Patient Discharge Instructions - Post Discharge Activity
== END 2020-05-19 15:50 | disposition home or self-care (01) ==
LOC: JVIRT 12:35
DX: Z03.818 Encounter for observation for suspected exposure to other biological agents ruled out (principal)
CPT/HCPCS: Q3014-GT; U0003

== ENCOUNTER 2021-12-22 11:30 | Emergency (ER) | payer OTHER ==
[2021-12-22 11:44] VITALS: BMI 42.0
[2021-12-22] MEDS ORDERED: SODIUM CHLORIDE 0.9% 500 ML INFUS.BAG IV ONE (11:52)
[2021-12-22] MEDS ORDERED: ACETAMINOPHEN 1000 MG/100 ML BAG IVPB ONE (11:52)
[2021-12-22] MEDS ORDERED: ACETAMINOPHEN INJECTION 100 ML IVPB ONE (12:09)
[2021-12-22 12:48] LABS: ALBUMIN 3.9 g/dl (3.4-5.0); BILIRUBIN,TOTAL 0.4 mg/dl (0.2-1); CALCIUM 9.1 mg/dl (8.5-10); TOT PROT 7.3 g/dl (6.4-8.2)
[2021-12-22 12:56] LABS: BASO % 1.1 % (0-2.0); EOS % 1.2 % (0-4.5); HEMATOCRIT 40.8 % (35.4-49); HEMOGLOBIN 13.5 GM/dL (11.7-16.9); LYMPH % 27.3 % (8-40); MCHC 33.1 g/dl (32.0-35.9); MEAN CELL VOLUME 78.4 fl (80-96); MEAN PLT VOLUME 8.8 fl (7.5-11.1); MONO % 19.1 % (3.8-10.2); NEUT % 51.3 % (42.8-82.8); PLATELET COUNT 200 10^3/uL (134-434); RDW 13.6 % (11.9-15.9); WHITE BLOOD COUNT 5.5 K/mm3 (4.0-10.0)
[2021-12-22 13:47] LABS: SARS AG REFLEX COV19 SEND OUT negative (Negative)
[2021-12-22 14:16] VITALS: BP 129/78; PULSE 91; TEMP 99.5
[2021-12-24 08:08] LABS: SARS-CoV-2 NAA Not Detected (Not Detected)
== END 2021-12-22 14:50 | disposition home or self-care (01) ==
LOC: FER 11:30
PROC: 3E0333Z Introduction of Anti-inflammatory into Peripheral Vein, Percutaneous Approach (ICD-10-PCS; principal; 2021-12-22)
DX: R05.1 Acute cough (principal); R19.7 Diarrhea, unspecified
CPT/HCPCS: 36415; 71045-TC-FY; 80053; 85025; 87426; 87804; 99284-25; C9803; U0003; U0005